=== PATIENT | male | born 1955 | race Caucasian/White ===

== ENCOUNTER 2017-10-25 09:15 | Inpatient (IN) | payer BC ==
[~2017-10-25] VITALS: Ht 185.4 cm; Wt 121.8 kg
[2017-10-25 09:36] LABS: INTER. NORMALIZED RATIO 1.2
[2017-10-25 09:38] LABS: PTT 25.3 SEC (25-37)
[2017-10-25 09:40] LABS: CHLORIDE 103 mEq/L (99-109); POTASSIUM 4.5 mEq/L (3.7-5.4); SODIUM 139 mEq/L (136-147)
[2017-10-25 09:40] LABS: BASOPHIL (%) 0.2 % (0-1); EOSINOPHIL (%) 0.3 % (0-5); HEMATOCRIT 51.3 % (38.0-50.0); HEMOGLOBIN 17.4 G/DL (12.5-16.6); IMMATURE GRANULOCYTE (%) 0.5 % (0.0-0.7); LYMPHOCYTE (%) 18.2 % (15-42); LYMPHOCYTE COUNT 1.6 K/uL (1.0-2.8); MCH 29.6 PG (29.0-34.0); MCHC 33.9 G/DL (30.0-36.0); MCV 87.4 FL (86-99); MONOCYTE (%) 7.1 % (3-12); MONOCYTE COUNT 0.6 K/uL (0-0.8); NEUTROPHIL (%) 73.7 % (45-76); NEUTROPHIL COUNT 6.5 K/uL (1.8-6.4); PLATELET COUNT 146 K/uL (156-360); RBC DIS.WIDTH-CV 13.5 % (11.8-14.6); RBC DIS.WIDTH-SD 43.3 % (39-53); RED BLOOD COUNT 5.87 M/uL (4.00-5.50); WHITE BLOOD COUNT 8.8 K/uL (4.1-10.2)
[2017-10-25 09:42] LABS: GLUCOSE 299 mg/dL (70-99)
[2017-10-25 09:45] LABS: CREATININE 1.8 mg/dL (0.6-1.3); GFR ESTIMATE (CALCULATED) 41 mL/min/ (58.99-99999)
[2017-10-25 09:46] LABS: UREA NITROGEN (BUN) 28 mg/dL (9-23)
[2017-10-25 09:48] LABS: CREATINE KINASE 93 IU/L (1-294); TOTAL CK 93 IU/L (1-294)
[2017-10-25 09:54] LABS: TROP-I INTERPRETATION POSITIVE; TROPONIN-I 0.76 ng/mL (0.0-0.30)
[2017-10-25 09:55] LABS: CK-MB 4.2 ng/mL (0.0-4.9); CKMB RELATIVE INDEX 4.5 (0.0-3.9)
[2017-10-25] MEDS ORDERED: FUSION CAPSULE1 EACH PO (11:44)
[2017-10-25] MEDS ORDERED: ADVIL200 MG PO (11:45)
[2017-10-25] MEDS ORDERED: EXCEDRIN EXTRA1 EACH PO (11:45)
[2017-10-25 14:07] VITALS: BP 138/86
[2017-10-25 16:35] VITALS: BP 126/79
[2017-10-25 17:23] LABS: TROP-I INTERPRETATION POSITIVE
[2017-10-25 17:26] LABS: TROPONIN-I 0.87 ng/mL (0.0-0.30)
[2017-10-25 19:00] VITALS: BP 92/68
[2017-10-25 21:36] LABS: INTER. NORMALIZED RATIO 1.2
[2017-10-25 21:48] LABS: PTT 49.3 SEC (25-37)
[2017-10-25 23:00] VITALS: BP 105/75
[2017-10-25 23:52] LABS: TROP-I INTERPRETATION POSITIVE
[2017-10-26 03:25] VITALS: BP 109/66
[2017-10-26 03:58] LABS: ALBUMIN 3.5 g/dL (3.2-4.8); CHLORIDE 108 mEq/L (99-109); POTASSIUM 4.2 mEq/L (3.7-5.4); SODIUM 138 mEq/L (136-147)
[2017-10-26 04:00] LABS: TOTAL PROTEIN 6.2 g/dL (6.4-8.3)
[2017-10-26 04:02] LABS: TOTAL BILIRUBIN 1.3 mg/dL (0.0-1.0)
[2017-10-26 04:04] LABS: ALKALINE PHOSPHATASE 53 IU/L (3-129); GFR ESTIMATE (CALCULATED) > 59 mL/min/ (58.99-99999)
[2017-10-26 04:05] LABS: UREA NITROGEN (BUN) 27 mg/dL (9-23)
[2017-10-26 04:06] LABS: AST (GOT) 22 IU/L (2-34)
[2017-10-26 04:07] LABS: ALT (GPT) 25 IU/L (3-49)
[2017-10-26 04:12] LABS: CREATININE 1.1 mg/dL (0.6-1.3); GLUCOSE 149 mg/dL (70-99)
[2017-10-26 06:37] LABS: TOTAL CHOLESTEROL 159 mg/dL (Desirable<200); TRIGLYCERIDES 149 MG/DL (Normal: <150)
[2017-10-26 06:55] VITALS: BP 120/72
[2017-10-26 07:13] LABS: HDL CHOLESTEROL 26 MG/DL (Desirable>=40); LDL CHOLESTEROL 103 mg/dL (Desirable<100); NON-HDL CHOLESTEROL 133 mg/dL (Desirable<160)
[2017-10-26 07:46] LABS: THYROTROPIN (TSH) 2.7 MIU/L (0.4-5.5)
[2017-10-26 09:30] LABS: HEMOGLOBIN A1c (GLYCOHEMOGLOB) 7.8 % (Below 5.7)
[2017-10-26 11:19] VITALS: BP 139/86
[2017-10-26 11:35] LABS: APPEARANCE CLEAR ((CLEAR)); BILIRUBIN NEGATIVE; BLOOD NEGATIVE; COLOR YELLOW ((YELLOW)); GLUCOSE (STRIP) NEGATIVE; KETONES NEGATIVE; LEUKOCYTES NEGATIVE; NITRITE NEGATIVE; PROTEIN (STRIP) NEGATIVE; SPECIFIC GRAVITY 1.024 (1.000-1.030); UCUL ADDED? NO; UROBILINOGEN 0.2 MG/DL (0.2-1.0)
[2017-10-26 16:08] VITALS: BP 120/85
[2017-10-26 19:30] VITALS: BP 124/84
[2017-10-26 23:00] VITALS: BP 115/77
[2017-10-27 04:30] VITALS: BP 117/78
[2017-10-27 06:14] LABS: BASOPHIL (%) 0.3 % (0-1); EOSINOPHIL (%) 1.8 % (0-5); EOSINOPHIL COUNT 0.1 K/uL (0-0.3); HEMATOCRIT 43.8 % (38.0-50.0); IMMATURE GRANULOCYTE (%) 0.3 % (0.0-0.7); LYMPHOCYTE COUNT 2.5 K/uL (1.0-2.8); MCH 29.4 PG (29.0-34.0); MCHC 32.9 G/DL (30.0-36.0); MCV 89.4 FL (86-99); MONOCYTE (%) 9.2 % (3-12); MONOCYTE COUNT 0.7 K/uL (0-0.8); NEUTROPHIL (%) 52.4 % (45-76); NEUTROPHIL COUNT 3.7 K/uL (1.8-6.4); PLATELET COUNT 140 K/uL (156-360); RBC DIS.WIDTH-CV 13.7 % (11.8-14.6); RBC DIS.WIDTH-SD 44.7 % (39-53); WHITE BLOOD COUNT 7.1 K/uL (4.1-10.2)
[2017-10-27 06:15] LABS: HEMOGLOBIN 14.4 G/DL (12.5-16.6)
[2017-10-27 06:17] LABS: CHLORIDE 107 MEQ/L (99-109); CREATININE 1.2 MG/DL (0.6-1.3); GFR ESTIMATE (CALCULATED) > 59 mL/min/ (58.99-99999); GLUCOSE 141 mg/dL (70-99); POTASSIUM 4.2 MEQ/L (3.7-5.4); SODIUM 142 MEQ/L (136-147); UREA NITROGEN (BUN) 23 mg/dL (9-23)
[2017-10-27 08:11] VITALS: BP 120/81
[2017-10-27 11:15] VITALS: BP 117/81
[2017-10-27 15:18] VITALS: BP 142/94
[2017-10-27] MEDS ORDERED: XARELTO15 MG PO (17:06)
== END 2017-10-27 18:00 | disposition home or self-care (01) | DRG 176 ==
LOC: EME 09:15 → 4EAST 11:19 → EDOF 11:19 → ENRESERV 11:35 → CANRESERV 12:05 → ENRESERV 13:02 → 4EAST 13:59
PROVIDERS: Emergency Medicine; Family Medicine; Internal Medicine Cardiovascular Disease
DX: I26.92 Saddle embolus of pulmonary artery without acute cor pulmonale (principal); N17.9 Acute kidney failure, unspecified; I27.20 Pulmonary hypertension, unspecified; R06.03 Acute respiratory distress; R09.02 Hypoxemia; I95.9 Hypotension, unspecified; Z91.19 Patient's noncompliance with other medical treatment and regimen; E11.65 Type 2 diabetes mellitus with hyperglycemia; E78.1 Pure hyperglyceridemia; E78.5 Hyperlipidemia, unspecified; R00.0 Tachycardia, unspecified; R00.2 Palpitations; E66.9 Obesity, unspecified; Z68.35 Body mass index [BMI] 35.0-35.9, adult; F17.200 Nicotine dependence, unspecified, uncomplicated; Z86.718 Personal history of other venous thrombosis and embolism
CPT/HCPCS: 71045; 71275; 78582; 80048; 80053; 80061; 81003; 82043; 82550; 82553; 82570; 83036; 83880; 84439; 84443; 84484; 85025; 85379; 85610; 85730; 93005; 93306; 94799; 99281; 99285; A9540; A9567

== ENCOUNTER → 2017-11-08 | Outpatient (CLI) | payer BC ==
[~2017-11-08] MED LIST: ADVIL200 MG PO; EXCEDRIN EXTRA1 EACH PO; FUSION CAPSULE1 EACH PO; XARELTO15 MG PO
== END | disposition home or self-care (01) ==
LOC: NUC 08:27
DX: R79.89 Other specified abnormal findings of blood chemistry (principal)
CPT/HCPCS: 78452; 93017; A9500; J2785